=== PATIENT | female | born 1960 | race American Indian/Alaskan Native ===

== ENCOUNTER 2017-05-21 05:25 | Day surgery (SDC) | payer OTHER ==
[~2017-05-21 05:25] MED LIST: Dextrose 5%-0.45% NaCl 1,000 ML IV SCH; Sodium Chloride 0.9% 10 ML Syringe FLUSH PRN
[2017-05-21] MEDS ORDERED: Midazolam 1 MG/ML 2 ML SDV ONE (06:13)
[2017-05-21] MEDS ORDERED: fentaNYL 100 MCG/2 ML SDV ONE (06:13)
[2017-05-21] MEDS ORDERED: fentaNYL 100 MCG/2 ML SDV IV ONE ×3 (06:38→16:55)
[2017-05-21] MEDS ORDERED: Midazolam 1 MG/ML 2 ML SDV IV ONE ×3 (06:39→16:55)
[2017-05-21 09:28] VITALS: BP 153/89
--- NOTE | 2017-05-21 10:40 | OR ---
DATE: 05/21/2017 PROCEDURE: Esophagogastroduodenoscopy and multiple pinch biopsies. INSTRUMENT USED: GIF-H180 Olympus video panendoscope. PREMEDICATIONS: No oral topical anesthesia used. Fentanyl 100 mcg intravenous, Versed 2 mg intravenous. Nasal 2 L O2 cannula. The procedure was done under pulse oximetry, BP recording, and air sampling and monitoring. INDICATION: The patient with persistent upper abdominal pain as well as dyspepsia unexplained and not responsive to medical measures, on PPI. Diabetic on medications. Esophagogastroduodenoscopy is performed for detection of any active erosive lesions, Gray esophagus and/or malignancy also under consideration, H. pylori status to be determined, endoscopic hemostasis therapy if needed. DESCRIPTION OF PROCEDURE: The scope was passed with ease. Adequate visualization of the esophagus was made from proximal to distal areas. No upper esophageal lesions identified. No distal esophageal stricture. No uphill or downhill esophageal varices. No Sharri-Martinez tear. No evidence of erosive esophagitis by [place] criteria. No esophageal polyp or tumor mass identified. Z-line was seen at around 35 cm distal to the oral verge, slightly half of hernia was noted. Four quadrant biopsies were taken from the pink columnar epithelium and 35 cm distal to the oral verge and sent for any histopathologic evidence of intestinal metaplasia. No proximal gastric varices noted. Gastric fundus examination showed no polypoid lesions. The examination of the gastric mucosa and duodenum was compromised due to the presence of large amount of solid food material that could not be aspirated clear. No gastric ulcer, malignant mass, or vascular ectasia identified. Duodenal bulb showed no ulcer. Visualized second part of the duodenum was unremarkable. Multiple pinch biopsies were taken from the gastric antrum and proximal body and sent for PyloriTek test for H. pylori and histopathology. No bleeding was noted from any of the visualized areas at the completion of examination. IMPRESSION: 1. Sliding hiatal hernia. 2. Gastroparesis diabeticorum. The patient tolerated the procedure well. [facility] /[id number]
--- NOTE | 2017-05-21 12:10 | LETTER ---
05/21/2017 Joana Mcgee MD [facility] [address] [place] [address] RE: LAURA NEWMAN : [address] Mcgee: Ms. Laura Thurman Carlos Eduardoabdiel had esophagogastroduodenoscopy done this morning and she tolerated the procedure well. I herewith send a copy of the endoscopy note and photographs for your review. Thank you. Sincerely, [facility] /[id number]
== END 2017-05-21 08:54 | disposition home or self-care (01) ==
LOC: DL.ENDO 05:25
PROVIDERS: ATTEND Internal Medicine Gastroenterology
DX: K29.50 Unspecified chronic gastritis without bleeding (principal); K20.9 Esophagitis, unspecified; K44.9 Diaphragmatic hernia without obstruction or gangrene; E11.43 Type 2 diabetes mellitus with diabetic autonomic (poly)neuropathy; K31.84 Gastroparesis; I10 Essential (primary) hypertension; E66.09 Other obesity due to excess calories; E11.9 Type 2 diabetes mellitus without complications; K21.9 Gastro-esophageal reflux disease without esophagitis; E78.5 Hyperlipidemia, unspecified; J45.909 Unspecified asthma, uncomplicated; Z86.010 Personal history of colon polyps; Z79.82 Long term (current) use of aspirin; Z79.4 Long term (current) use of insulin; Z79.899 Other long term (current) drug therapy
CPT/HCPCS: 43239; 87077; J2250; J3010; J7042

== ENCOUNTER 2017-05-22 05:33 | Day surgery (SDC) | payer OTHER ==
[2017-05-22] MEDS ORDERED: Midazolam 1 MG/ML 2 ML SDV ONE (06:14)
[2017-05-22] MEDS ORDERED: fentaNYL 100 MCG/2 ML SDV ONE (06:15)
[2017-05-22] MEDS ORDERED: fentaNYL 100 MCG/2 ML SDV IV ONE ×4 (06:29→16:16)
[2017-05-22] MEDS ORDERED: Sodium Chloride 0.9% 10 ML Syringe FLUSH PRN (06:29)
[2017-05-22] MEDS ORDERED: Dextrose 5%-0.45% NaCl 1,000 ML IV SCH (06:30)
[2017-05-22] MEDS ORDERED: Midazolam 1 MG/ML 2 ML SDV IV ONE ×7 (06:30→16:16)
--- NOTE | 2017-05-22 07:19 | OR ---
DATE: 05/22/2017 PROCEDURE: Total colonoscopy. INSTRUMENT USED: CF-H180AL Olympus video colonoscope. PREMEDICATIONS: Fentanyl 125 mcg intravenous, Versed 4 mg intravenous, 2 L nasal O2 cannula. The procedure was done under pulse oximetry, BP recording, and teletypesetter monitor. INDICATION: The patient with previous colonic tubular adenoma with progressive constipation unexplained and not responsive to medical measures. Colonoscopic examination is done for detection of any polypoid lesions and removal, endoscopic hemostasis therapy if needed. DESCRIPTION OF PROCEDURE: Initial rectal exam showed external hemorrhoidal tags. Rigid anoscopy was normal. The colonoscope was passed with ease up to the ileocecal area, photographs were taken of the normal-appearing cecum, identified by landmarks of appendiceal orifice and double-bulged ileocecal folds. No bleeding was noted from any of the visualized areas at the commencement of the examination. There was moderate amount of fecal material that had to be aspirated. No stricture. No vascular ectasia. No large isolated ulcerations seen. No evidence of diffuse inflammatory bowel disease in the form of friability, contact bleeding, or ulcerations. No polyp or tumor mass identified. Probing the proximal sides of folds and flexures, using adequate distention and clearing of the stool material, withdrawal of the scope was made, cecum to rectum time over 6 minutes. No bleeding was noted from any of the visualized areas at the completion of examination. IMPRESSION: External hemorrhoids. The patient tolerated the procedure well. [facility] /[id number]
[2017-05-22 08:47] VITALS: BP 164/98
--- NOTE | 2017-05-22 08:58 | LETTER ---
05/22/2017 Joana Mcgee MD [facility] [address] [place] [address] RE: LAURA YEE : [address] Mcgee: Ms. Laura Yee had colonoscopic examination done this morning and she tolerated the procedure well. I herewith send a copy of the endoscopy note and photographs for your review. She is put on Citrucel 1 tablespoon p.o. daily, response to be noted. Thank you. Sincerely, [facility] /[id number]
== END 2017-05-22 08:52 | disposition home or self-care (01) ==
LOC: DL.ENDO 05:33
PROVIDERS: ATTEND Internal Medicine Gastroenterology
DX: Z12.11 Encounter for screening for malignant neoplasm of colon (principal); K64.4 Residual hemorrhoidal skin tags; I10 Essential (primary) hypertension; E66.9 Obesity, unspecified; E11.9 Type 2 diabetes mellitus without complications; E78.5 Hyperlipidemia, unspecified; K21.9 Gastro-esophageal reflux disease without esophagitis; Z88.1 Allergy status to other antibiotic agents; Z88.8 Allergy status to other drugs, medicaments and biological substances; Z79.82 Long term (current) use of aspirin; Z79.899 Other long term (current) drug therapy; Z98.890 Other specified postprocedural states
CPT/HCPCS: 45378; J2250; J3010; J7042

== ENCOUNTER 2017-08-09 11:03 | Emergency (ER) | payer OTHER ==
[2017-08-09 11:45] VITALS: BP 167/83
[2017-08-09 12:10] LABS: CHLORIDE,CL 104 mmol/L (101-111); SODIUM,NA 140 mmol/L (135-145)
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
[2017-08-09] MEDS ORDERED: diphenhydrAMINE 50 MG/ML SDV IVPUSH ONE (12:18)
[2017-08-09] MEDS ORDERED: Dexamethasone 4 MG/ML SDV IVPUSH ONE (12:18)
[2017-08-09] MEDS ORDERED: Ketorolac 30 MG/ML SDV IVPUSH ONE (12:18)
--- NOTE | 2017-08-09 12:19 | CR ---
Clinical history: 56-year-old hypertensive female with cardiac palpitations and headache. Interpretation: Kyphosis and mild arthritic changes dorsal spine. Reasonable inspiratory effort revea ling normal cardiac silhouette without cephalization of vascular flow, signs of alveolar edema or dep endent pleural effusion. No lung mass, hilar lymphadenopathy or focal lobar pneumonia. No atelectasis/collapse. No pneumothora x. CONCLUSION: No acute new cardiopulmonary abnormality since comparison film April 2009.
--- NOTE | 2017-08-09 12:23 | CT ---
Clinical history: 56-year-old hypertensive female patient with headache and cardiac palpitations ("ne gative" chest x-ray). TECHNIQUE: Volume acquisition of data emergency unenhanced CT scan of the head and brain obtained wit h patient lying supine on the Siemens multi slice CT scanner [place], [place]. All data archived in the PACS system for storage, reformatting and study. Interpretation: No acute new intracranial abnormality compared directly to CT images of the head 2013. Generalized atrophy pattern symmetric with underlying mirror-image normal ventricular system. No new supratentorial or posterior fossa mass lesion or signs of hydrocephalus. Physiologic midline p ineal and symmetric choroid plexus calcifications. Cerebellum and brainstem unremarkable. Apparent en ucleation left optic globe. No new focal areas of ischemic infarct and no signs of acute intracerebral/intraventricular/subarachn oid bleed when compared to September 2014 exam. No abnormal extracerebral/and cranial epidural or subd ural hematoma. CONCLUSION: Negative exam.
[2017-08-09] MEDS: Sodium Chloride 0.9% 10 ML Syringe FLUSH PRN ×2 (12:40→12:52)
--- NOTE | 2017-08-18 10:44 | EKG ---
08/09/2017- KIMMY NEWMAN - This is a standard 12-lead EKG showing normal sinus rhythm with ventricular rate 88 beats per minute. Normal IA interval, QRS duration. Normal axis. No significant ST-T changes. [facility] /[id number]
== END 2017-08-09 15:06 | disposition home or self-care (01) ==
LOC: DL.ED 11:03
DX: G44.019 Episodic cluster headache, not intractable (principal); I10 Essential (primary) hypertension; K21.9 Gastro-esophageal reflux disease without esophagitis; F17.210 Nicotine dependence, cigarettes, uncomplicated; Z98.890 Other specified postprocedural states; Z79.82 Long term (current) use of aspirin; Z79.4 Long term (current) use of insulin; Z79.899 Other long term (current) drug therapy; Z88.1 Allergy status to other antibiotic agents
CPT/HCPCS: 36415; 70450; 71020; 80053; 82550; 82553; 84484; 85025; 93005; 96374; 96375; 99285; J1100; J1200; J1885; J7050

== ENCOUNTER 2018-02-27 22:01 | Emergency (ER) | payer OTHER ==
[2018-02-27] MEDS ORDERED: Phenazopyridine 95 MG Tab PO ONE (22:44)
[2018-02-27] MEDS ORDERED: Ciprofloxacin 500 MG Tab PO ONE (22:45)
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
[2018-02-27 23:04] VITALS: BP 182/96
== END 2018-02-27 23:08 | disposition home or self-care (01) ==
LOC: DL.ED 22:01
DX: N39.0 Urinary tract infection, site not specified (principal); E11.9 Type 2 diabetes mellitus without complications; I10 Essential (primary) hypertension; F17.210 Nicotine dependence, cigarettes, uncomplicated; Z79.82 Long term (current) use of aspirin; Z79.899 Other long term (current) drug therapy; Z88.1 Allergy status to other antibiotic agents
CPT/HCPCS: 81001; 87086; 99283; A9270; 87088; 87186

== ENCOUNTER 2019-07-29 15:06 | Observation (INO) | payer BC, OTHER ==
[2019-07-29 16:02] LABS: ANION GAP 12.6; CHLORIDE,CL 100 mmol/L (101-111); SODIUM,NA 136 mmol/L (135-145)
[2019-07-29] MEDS: Sodium Chloride 0.9% 10 ML Syringe FLUSH PRN ×2 (16:08→21:17)
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
[2019-07-29] MEDS: Acetaminophen 325 MG Tab PO PRN ×2 (17:30→21:17)
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
[2019-07-29] MEDS: Insulin Lispro 100 Units/ML 3 ML Vial SUBCUT SCH (21:12)
[2019-07-30] MEDS: Acetaminophen 325 MG Tab PO PRN (05:10)
[2019-07-30] MEDS ORDERED: Omeprazole 20 MG Cap.CR PO SCH (06:00)
[2019-07-30 08:30] VITALS: BP 142/78; PULSE 74
[2019-07-30] MEDS: Insulin Lispro 100 Units/ML 3 ML Vial SUBCUT SCH (08:47)
[2019-07-30] MEDS: Sodium Chloride 0.9% 10 ML Syringe FLUSH PRN (08:52)
[2019-07-30] MEDS ORDERED: Aspirin 81 MG Tab.EC PO SCH (09:00)
[2019-07-30] MEDS ORDERED: Calcium Carbonate/Vitamin D3 1250 MG-200 Unit Tab PO SCH (09:00)
[2019-07-30] MEDS ORDERED: Enoxaparin 40 MG/0.4 ML Syringe SUBCUT SCH (09:00)
--- NOTE | 2019-07-30 10:54 | PCM.DCSUM1 ---
Discharge Summary - Hospital Course Free Text/Narrative:: 58 yo F with PMH of HTN, DM2 who presents with pre-syncopal episode, chest pain. Patient was at work sitting at her desk when she developed sudden onset of aura , with visual field getting fuzzy and turning "yellow". She then felt light headed. Had chest pain described as a chest tightness, located substernally, no ppt or aggravating factors. Asssociated SOB, palpitations, diaphoresis, nausea. No vomiting, no abd pain, no urinary symptoms. Feels much better now, symptoms have resolved. Complains of headache, generalized, but more in frontal region. Improved with tylenol In the ED, lab work is unremarkable. CT head showed no bleed or infarct Troponin was negative x 3 She was monitored overnight I discussed with the patient. She might have migraine headaches. She will need follow up with Neurology clinic. Patient understands. Diagnosis: Stroke: No Modified Hadley Scale: No Symptoms at All Modified Hadley Scale Score: 0 - Discharge Data Discharge Date: 07/30/19 Discharge Disposition: Home, Self-Care 01 Condition: Good - Referral to Home Health Primary Care Physician: PCP Unknown - Patient Instructions Diet: Usual Diet as Tolerated Activity: As Tolerated - Discharge Plan Home Medications: Home Meds Aspirin [Halfprin] 81 mg PO DAILY 11/15/15 [History] Multivitamin with Minerals [Multiple Vitamin] 1 tab PO DAILY 11/15/15 [History] Omeprazole 2 tab PO DAILY 11/15/15 [History] Acetaminophen 2 tab PO Q6H PRN 05/16/17 [History] Losartan [Cozaar] 100 mg PO DAILY 05/21/17 [History] Alogliptin Benzoate [Alogliptin] 25 mg PO DAILY 07/29/19 [History] Calcium Citrate/Vitamin D3 [Calcium Cit-Vit D 315-200] 2 tab PO DAILY 07/29/19 [ History] Carboxymethylcellulose Sodium [Refresh Tears 0.5%] 1 drop EYERT Q6HR 07/29/19 [ History] Diclofenac Sodium [Voltaren 1% Gel] 2 gram TOP Q6HR PRN 07/29/19 [History] Loratadine 10 mg PO DAILY 07/29/19 [History] Meloxicam 15 mg PO DAILY PRN 07/29/19 [History] Potassium Chloride [Klor-Con M20] 20 meq PO DAILY 07/29/19 [History] Triamcinolone Acetonide [Triamcinolone Acetonide 0.1% Oint] 1 applic TOP BID 11/04 [History] amLODIPine Besylate [Amlodipine Besylate] 10 mg PO DAILY 07/29/19 [History] hydroCHLOROthiazide [Hydrochlorothiazide] 25 mg PO DAILY 07/29/19 [History] metFORMIN HCl [Metformin HCl] 1,000 mg PO BID 07/29/19 [History] Patient Handouts: Migraine Headache, [id number], Acetaminophen tablets or caplets, Syncope, [id number] - Discharge Summary/Plan Comment DC Time >30 min.: Yes - General Info Date of Service: 07/30/19 Admission Dx/Problem (Free Text: Admission Diagnosis/Problem Admission Diagnosis/Problem Near syncope Functional Status: Reports: Pain Controlled - Review of Systems General: Reports: No Symptoms HEENT: Reports: No Symptoms Pulmonary: Reports: No Symptoms Cardiovascular: Reports: No Symptoms Gastrointestinal: Reports: No Symptoms Genitourinary: Reports: No Symptoms Musculoskeletal: Reports: No Symptoms Neurological: Reports: Headache (headache improved) - Patient Data Vitals - Most Recent: Last Vital Signs Temp 36.4 C 07/30/19 07:00 Pulse 74 07/30/19 07:00 Resp 20 07/30/19 07:00 BP 142/78 H 07/30/19 07:00 Pulse Ox 99 07/30/19 07:00 Orthostatic Blood Pressure [ 126/85 Standing] Orthostatic Blood Pressure [ 135/68 Sitting] Orthostatic Blood Pressure [ 111/61 Supine] Weight - Most Recent: 105.324 kg I&O - Last 24 hours: Intake & Output 07/29/19 07/30/19 07/30/19 22:59 06:59 14:59 Intake Total 1040 400 200 Output Total 500 900 Balance 540 -500 200 Lab Results - Last 24 hrs: Laboratory Results - last 24 hr 07/29/19 07/29/19 07/29/19 Range/Units 15:12 15:34 15:34 WBC 8.9 (5.0-10.0) 10^3/uL RBC 4.99 (4.2-5.4) 10^6/uL Hgb 14.1 (12.0-16.0) g/dL Hct 42.7 (37.0-47.0) % MCV 85.6 (80-100) fL MCH 28.3 (27.0-34.0) pg MCHC 33.0 (33.0-35.0) g/dL Plt Count 242 (150-450) 10^3/uL Neut % (Auto) 60.1 (42.2-75.2) % Lymph % (Auto) 26.4 (20.5-50.1) % [place] % (Auto) 8.3 H (2-8) % Eos % (Auto) 4.9 H (1.0-3.0) % Baso % (Auto) 0.3 (0.0-1.0) % PT 9.4 (9.0-12.0) SEC INR 0.9 (0.9-1.2) APTT 24.5 (22.0-34.0) SEC D-Dimer, Quantitative (0-400) ng/mL Sodium (135-145) mmol/L Potassium (3.6-5.0) mmol/L Chloride (101-111) mmol/L Carbon Dioxide (21.0-31.0) mmol/L Anion Gap BUN (7-18) mg/dL Creatinine (0.6-1.3) mg/dL Est Cr Clr Drug Dosing Estimated GFR (MDRD) BUN/Creatinine Ratio Glucose (74-105) mg/dL POC Glucose (70-105) mg/dl Calcium (8.4-10.2) mg/dl Total Bilirubin (0.2-1.0) mg/dL AST (10-42) IU/L ALT (10-60) IU/L Alkaline Phosphatase (42-121) IU/L Troponin I (0.00-0.02) ng/ml Total Protein (6.7-8.2) g/dl Albumin (3.2-5.5) g/dl Globulin Albumin/Globulin Ratio Urine Color Yellow (YELLOW) Urine Appearance Slightly cloudy (CLEAR) Urine pH 6.0 (5.0-9.0) Ur Specific [place] 1.010 (1.005-1.030) Urine Protein Negative (NEGATIVE) Urine Glucose (UA) Negative (NEGATIVE) Urine Ketones Negative (NEGATIVE) Urine Occult Blood Negative (NEGATIVE) Urine Nitrite Negative (NEGATIVE) Urine Bilirubin Negative (NEGATIVE) Urine Urobilinogen 0.2 (0.2-1.0) mg/dL Ur Leukocyte Esterase Trace H (NEGATIVE) Urine RBC 0-5 /HPF Urine WBC 0-5 (0-5/HPF) /HPF Ur Epithelial Cells Few (NOT SEEN) /HPF Urine Bacteria Rare (0-FEW/HPF) /HPF Urine Mucus Rare (NOT SEEN) /LPF 07/29/19 07/29/19 07/29/19 Range/Units 15:34 15:34 20:56 WBC (5.0-10.0) 10^3/uL RBC (4.2-5.4) 10^6/uL Hgb (12.0-16.0) g/dL Hct (37.0-47.0) % MCV (80-100) fL MCH (27.0-34.0) pg MCHC (33.0-35.0) g/dL Plt Count (150-450) 10^3/uL Neut % (Auto) (42.2-75.2) % Lymph % (Auto) (20.5-50.1) % [place] % (Auto) (2-8) % Eos % (Auto) (1.0-3.0) % Baso % (Auto) (0.0-1.0) % PT (9.0-12.0) SEC INR (0.9-1.2) APTT (22.0-34.0) SEC D-Dimer, Quantitative 120 (0-400) ng/mL Sodium 136 (135-145) mmol/L Potassium 3.6 (3.6-5.0) mmol/L Chloride 100 L (101-111) mmol/L Carbon Dioxide 27.0 (21.0-31.0) mmol/L Anion Gap 12.6 BUN 12 (7-18) mg/dL Creatinine 0.8 (0.6-1.3) mg/dL Est Cr Clr Drug Dosing TNP Estimated GFR (MDRD) > 60 BUN/Creatinine Ratio 15.00 Glucose 200 H (74-105) mg/dL POC Glucose 251 H (70-105) mg/dl Calcium 9.5 (8.4-10.2) mg/dl Total Bilirubin 0.6 (0.2-1.0) mg/dL AST 61 H (10-42) IU/L ALT 87 H (10-60) IU/L Alkaline Phosphatase 74 (42-121) IU/L Troponin I < 0.02 (0.00-0.02) ng/ml Total Protein 8.7 H (6.7-8.2) g/dl Albumin 4.4 (3.2-5.5) g/dl Globulin 4.3 Albumin/Globulin Ratio 1.02 Urine Color (YELLOW) Urine Appearance (CLEAR) Urine pH (5.0-9.0) Ur Specific [place] (1.005-1.030) Urine Protein (NEGATIVE) Urine Glucose (UA) (NEGATIVE) Urine Ketones (NEGATIVE) Urine Occult Blood (NEGATIVE) Urine Nitrite (NEGATIVE) Urine Bilirubin (NEGATIVE) Urine Urobilinogen (0.2-1.0) mg/dL Ur Leukocyte Esterase (NEGATIVE) Urine RBC /HPF Urine WBC (0-5/HPF) /HPF Ur Epithelial Cells (NOT SEEN) /HPF Urine Bacteria (0-FEW/HPF) /HPF Urine Mucus (NOT SEEN) /LPF 07/29/19 07/30/19 07/30/19 Range/Units 22:00 05:50 07:54 WBC (5.0-10.0) 10^3/uL RBC (4.2-5.4) 10^6/uL Hgb (12.0-16.0) g/dL Hct (37.0-47.0) % MCV (80-100) fL MCH (27.0-34.0) pg MCHC (33.0-35.0) g/dL Plt Count (150-450) 10^3/uL Neut % (Auto) (42.2-75.2) % Lymph % (Auto) (20.5-50.1) % [place] % (Auto) (2-8) % Eos % (Auto) (1.0-3.0) % Baso % (Auto) (0.0-1.0) % PT (9.0-12.0) SEC INR (0.9-1.2) APTT (22.0-34.0) SEC D-Dimer, Quantitative (0-400) ng/mL Sodium (135-145) mmol/L Potassium (3.6-5.0) mmol/L Chloride (101-111) mmol/L Carbon Dioxide (21.0-31.0) mmol/L Anion Gap BUN (7-18) mg/dL Creatinine (0.6-1.3) mg/dL Est Cr Clr Drug Dosing Estimated GFR (MDRD) BUN/Creatinine Ratio Glucose (74-105) mg/dL POC Glucose 217 H (70-105) mg/dl Calcium (8.4-10.2) mg/dl Total Bilirubin (0.2-1.0) mg/dL AST (10-42) IU/L ALT (10-60) IU/L Alkaline Phosphatase (42-121) IU/L Troponin I 0.03 H* < 0.02 (0.00-0.02) ng/ml Total Protein (6.7-8.2) g/dl Albumin (3.2-5.5) g/dl Globulin Albumin/Globulin Ratio Urine Color (YELLOW) Urine Appearance (CLEAR) Urine pH (5.0-9.0) Ur Specific [place] (1.005-1.030) Urine Protein (NEGATIVE) Urine Glucose (UA) (NEGATIVE) Urine Ketones (NEGATIVE) Urine Occult Blood (NEGATIVE) Urine Nitrite (NEGATIVE) Urine Bilirubin (NEGATIVE) Urine Urobilinogen (0.2-1.0) mg/dL Ur Leukocyte Esterase (NEGATIVE) Urine RBC /HPF Urine WBC (0-5/HPF) /HPF Ur Epithelial Cells (NOT SEEN) /HPF Urine Bacteria (0-FEW/HPF) /HPF Urine Mucus (NOT SEEN) /LPF RAHEL Results - Last 24 hrs: Microbiology 07/29/19 15:12 Urine Culture - Preliminary Urine, Voided Med Orders - Current: Current Medications Acetaminophen (Tylenol) 650 mg PO Q4H PRN PRN Reason: Pain Last Admin: 07/30/19 05:10 Dose: 650 mg Aspirin (Halfprin) 81 mg PO DAILY [facility] Last Admin: 07/30/19 08:45 Dose: 81 mg Calcium Carbonate (Calcium Carbonate/Vitamin D 1250 Mg-200 Unit) 2 tab PO DAILY [facility] Last Admin: 07/30/19 08:46 Dose: 2 tab Enoxaparin Sodium (Lovenox) 40 mg SUBCUT DAILY [facility] Last Admin: 07/30/19 08:46 Dose: 40 mg Insulin Human Lispro (Humalog) 0 unit SUBCUT QIDACANDBED [facility]; Protocol Last Admin: 07/30/19 08:47 Dose: 4 units Omeprazole (Omeprazole) 20 mg PO ACBREAKFAST MEI Last Admin: 07/30/19 05:10 Dose: 20 mg Sodium Chloride (Saline Flush) 10 ml FLUSH ASDIRECTED PRN PRN Reason: Keep Vein Open Last Admin: 07/30/19 08:52 Dose: 10 ml - Exam General: Reports: Alert, Oriented HEENT: Reports: Pupils Equal Neck: Reports: Supple Lungs: Reports: Clear to Auscultation, Normal Respiratory Effort Cardiovascular: Reports: Regular Rate, Regular Rhythm GI/Abdominal Exam: Normal Bowel Sounds, Soft, Non-Tender, No Organomegaly Extremities: Normal Inspection, Normal Range of Motion, Non-Tender, No Pedal Edema Neurological: Reports: No New Focal Deficit
== END 2019-07-30 11:28 | disposition home or self-care (01) ==
LOC: DL.ED 15:06 → DL.MS 16:35 → UNDOADMOB 16:44
PROVIDERS: ADMIT Hospitalist; ATTEND Hospitalist
DX: R55 Syncope and collapse (principal); R07.2 Precordial pain; I10 Essential (primary) hypertension; E11.9 Type 2 diabetes mellitus without complications; Z88.1 Allergy status to other antibiotic agents; Z79.82 Long term (current) use of aspirin; Z79.84 Long term (current) use of oral hypoglycemic drugs; Z79.899 Other long term (current) drug therapy
CPT/HCPCS: 36415; 70450; 71045; 80053; 81001; 82962; 84484; 85025; 85379; 85610; 85730; 87086; 87088; 87186; 93005; 99285; A9270; J1650; J1815; 96372; G0378

== ENCOUNTER 2021-03-11 20:01 | Emergency (ER) | payer BC, MEDICAID, OTHER ==
[2021-03-11] MEDS ORDERED: Ondansetron 4 MG Tab.DIS PO ONE (20:02)
[2021-03-11] MEDS ORDERED: Ondansetron 4 MG/2 ML SDV IVPUSH ONE (20:38)
[2021-03-11] MEDS ORDERED: Sodium Chloride 0.9% 1,000 ML IV ONE (20:38)
[2021-03-11 21:19] LABS: ANION GAP 20.1 mEq/L (7-13); CHLORIDE,CL 101 mmol/L (98-107); SODIUM,NA 138 mmol/L (136-145)
[2021-03-11 21:27] LABS: CORONAVIRUS COVID-19 NAA NEGATIVE (NEGATIVE)
[2021-03-11] MEDS ORDERED: Iopamidol 612 MG/ML 100 ML Bottle IVPUSH ONE (21:41)
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
[2021-03-11 21:46] VITALS: BP 158/92; PULSE 97
--- NOTE | 2021-03-11 22:47 | CT ---
PROCEDURE INFORMATION: Exam: CT Abdomen And Pelvis With Contrast Exam date and time: 03/11/2021 10:14 PM Age: 60 years old Clinical indication: Nausea and vomiting and other: Wbc 15,400; Additional info: Upper abdominal pain TECHNIQUE: Imaging protocol: Computed tomography of the abdomen and pelvis with contrast. Radiation optimization: All CT scans at this facility use at least one of these dose optimization techniques: automated exposure control; mA and/or kV adjustment per patient size (includes targeted exams where dose is matched to clinical indication); or iterative reconstruction. Contrast material: [id number]; Contrast volume: 100 ml; Contrast route: INTRAVENOUS (IV); COMPARISON: No relevant prior studies available. FINDINGS: Liver: The liver is normal in architecture, without suspicious abnormality. Gallbladder and bile ducts: No calcified gallstones. No ductal dilation. Pancreas: The pancreatic parenchyma is normal in bulk and sharply marginated. Duct is not dilated. No calcifications, masses, or abnormal fluid collections. Spleen: Spleen is normal in size. No mass or fluid collection. Adrenal glands: There are no adrenal masses. Kidneys and ureters: Normal in parenchymal bulk. No hydronephrosis or asymmetric perinephric stranding. No solid masses. No stones. Stomach and bowel: Dilatation of the proximal 3rd portion of the duodenum to 4.1 cm. No other dilated small bowel loops are present.Gas and stool are present within colon to the rectum. Appendix: There is no evidence for appendicitis. Intraperitoneal space: No ascites. No abscess. No inflammation within the intra-abdominal fat. No pneumoperitoneum. No mass. Vasculature: No aneurysm. Lymph nodes: There are no enlarged celiac, mesenteric, periportal, extraperitoneal or inguinal lymph nodes. Urinary bladder: There is no bladder wall thickening, mass, or calculus. Reproductive: The uterus and ovaries are within normal limits. There are no adenexal masses. Bones/joints: Age appropriate. No acute fracture. No dislocation. There are no suspicious lytic or osteosclerotic lesions. Soft tissues: See "Intraperitoneal space" finding. IMPRESSION: Findings which are consistent with duodenal ileus.
[2021-03-11] MEDS ORDERED: Ondansetron 4 MG Tab.DIS ONE (23:01)
== END 2021-03-11 23:13 | disposition home or self-care (01) ==
LOC: DL.ED 20:01
DX: K56.7 Ileus, unspecified (principal); I10 Essential (primary) hypertension; K21.9 Gastro-esophageal reflux disease without esophagitis; E13.9 Other specified diabetes mellitus without complications; Z20.822 Contact with and (suspected) exposure to COVID-19; Z88.1 Allergy status to other antibiotic agents; Z88.6 Allergy status to analgesic agent; Z79.84 Long term (current) use of oral hypoglycemic drugs; Z79.899 Other long term (current) drug therapy
CPT/HCPCS: 0240U; 36415; 74177; 80053; 83605; 85025; 96374; 99283; 99284; A9270; J2405; J7030; Q9967

== ENCOUNTER 2021-05-24 14:35 | Emergency (ER) | payer MEDICAID ==
[2021-05-24 14:46] VITALS: BP 156/86; PULSE 51
[2021-05-24] MEDS ORDERED: Sodium Chloride 0.9% 10 ML Syringe FLUSH PRN (15:07)
[2021-05-24 15:32] LABS: ANION GAP 15.8 mEq/L (7-13)
[2021-05-24] MEDS ORDERED: GI Cocktail Oral Solution 30 ML PO ONE (15:57)
--- NOTE | 2021-05-24 15:57 | CR ---
EXAMINATION: Chest 1V Frontal SEX: Female AGE: 60 years CLINICAL HISTORY: 60-year-old female complaining of "chest heaviness". Comparison CXR 29 July 2019. Interpretation: Negative. No acute new cardiopulmonary abnormality identified in the interval since 29 July 2019 film (reasonable inspiratory effort obese female). Multilevel disc disease and chronic arthritic changes of the spine. Normal cardiac silhouette (size and configuration). Left-sided aortic arch. No pulmonary vascular congestion, cephalization of flow, alveolar edema or pleural fluid accumulation (effusions). No lung mass or hilar lymphadenopathy. No new alveolar infiltrate, atelectasis/collapse or peripheral "groundglass" interstitial lung densities. No pneumothorax or pneumomediastinum. Midline tracheal bronchial airway unremarkable. Conclusion: No acute new cardiopulmonary abnormality.
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
--- NOTE | 2021-05-24 17:02 | PCM.EKG ---
#1 Interpretation EKG Date: 05/24/21 Time: 14:59 Rhythm: NSR Rate (Beats/Min): 101 [place]: Normal P-Wave: Present QRS: Normal ST-T: Normal QT: Normal Comparison: No Change
[2021-05-24 17:24] LABS: AMPHETAMINES,URINE NEGATIVE (NEGATIVE); BARBITURATES,URINE NEGATIVE (NEGATIVE); BENZODIAZEPINE,URINE NEGATIVE (NEGATIVE); MDMA (ECSTASY), URINE NEGATIVE (NEGATIVE); METHADONE,URINE NEGATIVE (NEGATIVE); METHAMPHETAMINES,URINE NEGATIVE (NEGATIVE); OPIATES,URINE NEGATIVE (NEGATIVE); OXYCODONE,URINE NEGATIVE (NEGATIVE); PHENCYCLIDINE,URINE NEGATIVE (NEGATIVE); TCA,URINE NEGATIVE (NEGATIVE)
== END 2021-05-24 17:47 | disposition home or self-care (01) ==
LOC: DL.ED 14:35
DX: R00.2 Palpitations (principal); I10 Essential (primary) hypertension; E11.9 Type 2 diabetes mellitus without complications; E66.9 Obesity, unspecified; K21.9 Gastro-esophageal reflux disease without esophagitis; Z72.0 Tobacco use; Z68.38 Body mass index [BMI] 38.0-38.9, adult; Z79.82 Long term (current) use of aspirin; Z79.4 Long term (current) use of insulin; Z79.899 Other long term (current) drug therapy
CPT/HCPCS: 36415; 71045; 80053; 80305; 82947; 83880; 84443; 84484; 85025; 93005; 93010; 99284; 99285; A9270

== ENCOUNTER 2021-11-23 10:13 | Emergency (ER) | payer BC ==
[2021-11-23] MEDS ORDERED: Sodium Chloride 0.9% 10 ML Syringe FLUSH PRN (10:42)
[2021-11-23 10:52] VITALS: BP 176/106; PULSE 60
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
--- NOTE | 2021-11-23 11:14 | CR ---
EXAMINATION: Chest 1V Frontal SEX: Female AGE: 61 years CLINICAL HISTORY: 61-year-old female complaining of chest pain. Comparison 29 July 2019 and 24 May 2021. INTERPRETATION: No acute new cardiopulmonary abnormality. Generally poor inspiratory effort obese female. 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 Normal cardiac silhouette (size and configuration) unchanged since comparison CXR films. No new pulmonary vascular congestion, cephalization of flow, alveolar edema or dependent pleural fluid accumulation. No new lung mass or hilar/mediastinal lymphadenopathy. Tracheobronchial airway unremarkable. No alveolar consolidation, air bronchograms, atelectasis/collapse, or peripheral "groundglass" interstitial lung densities. No pneumothorax or pneumomediastinum.
[2021-11-23 11:27] LABS: CHLORIDE,CL 101 mmol/L (98-107); SODIUM,NA 139 mmol/L (136-145)
== END 2021-11-23 12:04 | disposition home or self-care (01) ==
LOC: DL.ED 10:13
DX: I49.3 Ventricular premature depolarization (principal); F43.9 Reaction to severe stress, unspecified; E11.9 Type 2 diabetes mellitus without complications; I10 Essential (primary) hypertension; K21.9 Gastro-esophageal reflux disease without esophagitis; E66.9 Obesity, unspecified; Z88.1 Allergy status to other antibiotic agents; Z88.8 Allergy status to other drugs, medicaments and biological substances; Z79.82 Long term (current) use of aspirin; Z79.899 Other long term (current) drug therapy; Z79.4 Long term (current) use of insulin; Z68.38 Body mass index [BMI] 38.0-38.9, adult
CPT/HCPCS: 36415; 71045; 80053; 81003; 83735; 83880; 84100; 84443; 84484; 85025; 85379; 93005; 99285-25

== ENCOUNTER 2023-09-29 05:34 | Day surgery (SDC) | payer BC, MEDICAID ==
[~2023-09-29 05:34] MED LIST changes: -Sodium Chloride 0.9% 10 ML Syringe FLUSH PRN
[2023-09-29] MEDS ORDERED: Midazolam 1 MG/ML 2 ML SDV ONE (06:17)
[2023-09-29] MEDS ORDERED: fentaNYL 100 MCG/2 ML SDV ONE (06:17)
[2023-09-29] MEDS ORDERED: fentaNYL 100 MCG/2 ML SDV IV ONE ×2 (06:33→06:34)
[2023-09-29] MEDS ORDERED: Midazolam 1 MG/ML 2 ML SDV IV ONE ×2 (06:34→06:35)
[2023-09-29 08:28] VITALS: BP 124/58; PULSE 56
== END 2023-09-29 09:40 | disposition home or self-care (01) ==
LOC: DL.ENDO 05:34
PROVIDERS: ATTEND Internal Medicine Gastroenterology
DX: K29.50 Unspecified chronic gastritis without bleeding (principal); K21.00 Gastro-esophageal reflux disease with esophagitis, without bleeding; K44.9 Diaphragmatic hernia without obstruction or gangrene; E11.9 Type 2 diabetes mellitus without complications; K21.9 Gastro-esophageal reflux disease without esophagitis; I10 Essential (primary) hypertension; E78.5 Hyperlipidemia, unspecified; M06.9 Rheumatoid arthritis, unspecified; E73.9 Lactose intolerance, unspecified; E66.09 Other obesity due to excess calories; Z80.0 Family history of malignant neoplasm of digestive organs; Z88.1 Allergy status to other antibiotic agents; Z68.33 Body mass index [BMI] 33.0-33.9, adult
CPT/HCPCS: 87077; J2250; J3010; J7042